=== PATIENT | female | born 1945 | race Caucasian/White ===

== ENCOUNTER → 2018-03-01 | Outpatient (CLI) | payer MEDICARE | LOC: RESP 08:11 | PROVIDERS: ATTEND Internal Medicine | DX: R06.09 Other forms of dyspnea (principal) | CPT/HCPCS: 94060; 94727; 94729 ==

== ENCOUNTER 2024-11-06 14:04 | Emergency (ER) | payer MEDICARE ==
[~2024-11-06] VITALS: Ht 154.9 cm; Wt 58.3 kg
[2024-11-06] MEDS ORDERED: HYDROCODON-ACE1 EA11 PO (14:32)
[2024-11-06] MEDS ORDERED: IBUPROFEN600 MG PO (14:32)
[2024-11-06] MEDS: KETOROLAC TROMETHAMINE 30 MG/ML VIAL IM ONE (14:57)
[2024-11-06] MEDS: ACETAMINOPHEN 325 MG TAB PO ONE (14:57)
[2024-11-06 15:49] VITALS: PULSE 64; RESP 18; TEMP 98.7; O2SAT 94
[2024-11-06] MEDS ORDERED: ketorolac PO (17:10)
[2024-11-06] MEDS ORDERED: MONTELUKAST SOD10 MG PO (17:10)
[2024-11-06] MEDS ORDERED: DEPO MEDROL IM (17:10)
[2024-11-06] MEDS ORDERED: TRAMADOL HCL25 MG PO (17:10)
[2024-11-06] MEDS ORDERED: CITALOPRAM HBR20 MG PO (17:10)
[2024-11-06] MEDS ORDERED: NEURONTIN300 MG PO (17:10)
[2024-11-06] MEDS ORDERED: LISINOPRIL10 MG PO (17:10)
[2024-11-06] MEDS ORDERED: ZOLPIDEM TARTRAT5 MG PO (17:10)
[2024-11-06] MEDS ORDERED: SYNTHROID100 MCG PO (17:10)
[2024-11-06] MEDS ORDERED: CALCIUM CITRAT250 MG PO (17:10)
[2024-11-06] MEDS ORDERED: BUPROPION XL150 MG PO (17:10)
[2024-11-06] MEDS ORDERED: OMEPRAZOLE40 MG PO (17:10)
[2024-11-06] MEDS ORDERED: BACLOFEN10 MG PO (17:10)
[2024-11-06] MEDS ORDERED: PYRIDOSTIGMINE60 MG (17:10)
[2024-11-06] MEDS ORDERED: CLONIDINE HCL0.1 MG PO (17:10)
[2024-11-06] MEDS ORDERED: VITAMIN B-121000 MCG PO (17:10)
[2024-11-06] MEDS ORDERED: MECLIZINE HCL12.5 MG PO (17:10)
[2024-11-06] MEDS ORDERED: DICYCLOMINE HCL20 MG PO (17:10)
[2024-11-06] MEDS ORDERED: PREDNISONE5 MG PO (17:10)
[2024-11-06] MEDS ORDERED: ATENOLOL50 MG PO (17:10)
== END 2024-11-06 16:13 | disposition home or self-care (01) ==
LOC: FSED 14:20
DX: S00.03XA Contusion of scalp, initial encounter (principal); S12.110A Anterior displaced Type II dens fracture, initial encounter for closed fracture; S16.1XXA Strain of muscle, fascia and tendon at neck level, initial encounter; W01.0XXA Fall on same level from slipping, tripping and stumbling without subsequent striking against object, initial encounter; Y93.01 Activity, walking, marching and hiking; Y92.89 Other specified places as the place of occurrence of the external cause; I10 Essential (primary) hypertension; E78.5 Hyperlipidemia, unspecified; E03.9 Hypothyroidism, unspecified; K21.9 Gastro-esophageal reflux disease without esophagitis; M19.09 Primary osteoarthritis, other specified site; Z87.19 Personal history of other diseases of the digestive system
CPT/HCPCS: 72125; 96372; 99284; J1885